=== PATIENT | female | born 1940 | race Caucasian/White ===

== ENCOUNTER 2023-10-04 16:54 | Inpatient (IN) | payer MEDICARE, OTHER ==
[~2023-10-04] VITALS: Ht 162.6 cm; Wt 58.2 kg
[~2023-10-04 16:54] MED LIST: DILT360C17; FLUO40CA; FURO40TA4; POTA-211; SIMV40TA18; WARF-112; WARF4TAB70
[2023-10-04 17:57] LABS: Basophils # (auto) 0 10 ^3/uL (0-0.2); Basophils % (auto) 0.1 % (0.0-2.0); Eosinophils # (auto) 0 10 ^3/uL (0-0.8); Hematocrit 33.4 % (36.0-46.0); Hemoglobin 10.6 g/dL (12.2-16.2); Lymphocytes # (auto) 0.8 10 ^3/uL (0.4-5.4); Mean Corpuscular Hemoglobin 27.5 pg (28.0-32.0); Mean Corpuscular Hgb Conc. 31.7 g/dL (32.0-36.0); Mean Corpuscular Volume 86.7 fL (80.0-100.0); Monocytes # (auto) 1.5 10 ^3/uL (0-1.3); Monocytes % (auto) 5.5 % (0.0-12.0); Neutrophils # (auto) 23.9 10 ^3/uL (1.6-8.6); Neutrophils % (auto) 91.4 % (37.0-80.0); Red Blood Cells 3.85 10^6/uL (4.0-5.20); Red Cell Distribution Width 18.8 % (11.8-14.3); White Blood Cell 26.2 10^3/uL (4.4-10.8)
[2023-10-04 18:01] VITALS: PULSE 98; RESP 26; O2SAT 96
[2023-10-04 18:09] LABS: Alanine Aminotransferase 11 U/L (7-40); Alkaline Phosphatase 122 U/L (46-116); Anion Gap 13 (5-15); Aspartate Aminotransferase 22 U/L (13-40); BUN/Creatinine Ratio 11.7 (10.0-20.0); Bilirubin, Total 0.3 mg/dL (0.2-1.0); Blood Urea Nitrogen 44 mg/dL (9-23); Calcium 8.8 mg/dL (8.5-10.1); Carbon Dioxide 24 mmol/L (20-30); Chloride 100 mmol/L (98-107); Glucose 138 mg/dL (74-106); Potassium 4.5 mmol/L (3.5-5.1); Sodium 137 mmol/L (136-145); Total Protein 7.5 g/dL (5.7-8.2)
[2023-10-04 18:18] LABS: Prothrombin Time 46.5 sec (9.3-11.8)
[2023-10-04 18:20] LABS: INR 4.94 (0.9-1.15)
[2023-10-04 18:20] LABS: Urine Bacteria None Seen /hpf (None Seen)
[2023-10-04 18:34] LABS: Lactic Acid w/Reflex 2.9 mmol/L (0.4-2.0)
[2023-10-04 18:37] LABS: Urine Blood 2+ /uL (Negative); Urine Clarity Ex.Turbid (Clear); Urine Color Light-Brown (Yellow); Urine Protein, UAD 2+ (Negative); Urine Specific Gravity 1.011 (1.001-1.035); Urine Urobilinogen Normal (Negative); Urine WBC 4919 /hpf (0 - 5); Urine WBC Clumps PRESENT /hpf (None Seen); Urine pH 6.5 (5.0-9.0)
[2023-10-04] MEDS: SODIUM CHLORIDE 0.9% 1,000 ML IV ONE (18:41)
[2023-10-04] MEDS: levoFLOXacin 750MG 150 ML IV ONE (18:41)
[2023-10-04 19:30] VITALS: PULSE 94; RESP 24; O2SAT 98
[2023-10-04] MEDS ORDERED: NITROGLYCERIN 0.4 MG SL TAB SL PRN (22:00)
[2023-10-04] MEDS ORDERED: MORPHINE SULFATE INJ 2 MG/ml SYRG IV PRN (22:00)
[2023-10-04] MEDS ORDERED: ONDANSETRON HCL 4 MG/2 ML VIAL IV PRN (22:00)
[2023-10-04] MEDS ORDERED: DOCUSATE SOD 100 MG CAP PO PRN (22:00)
[2023-10-04] MEDS ORDERED: GABA-339 PO (22:01)
[2023-10-04] MEDS ORDERED: ATOR40TA52 PO (22:01)
[2023-10-04] MEDS ORDERED: POTA-228 PO (22:01)
[2023-10-04] MEDS ORDERED: METF-370 PO (22:04)
[2023-10-04] MEDS ORDERED: WARF-113 PO (22:04)
[2023-10-04] MEDS ORDERED: DEXTROSE (50%) 50ML SYRG IV PRN (22:15)
[2023-10-04] MEDS: ACETAMINOPHEN 325 MG TAB PO PRN (22:24)
[2023-10-04] MEDS: SODIUM CHLORIDE 0.9% 1,800 ML IV ONE (23:00)
[2023-10-04] MEDS: ACETAMINOPHEN 650 MG RECT SUPP PR PRN (23:08)
[2023-10-04] MEDS: SODIUM CHLORIDE 0.9% 1,000 ML IV SCH (23:12)
[2023-10-05] VITALS (9 sets, daily range): BP systolic 119–145; BP diastolic 58–65; PULSE 99–120; RESP 17–20; TEMP 37.4; O2SAT 90–95
[2023-10-05 05:26] LABS: Basophils # (auto) 0 10 ^3/uL (0-0.2); Basophils % (auto) 0.2 % (0.0-2.0); Eosinophils # (auto) 0 10 ^3/uL (0-0.8); Hematocrit 30.3 % (36.0-46.0); Hemoglobin 9.4 g/dL (12.2-16.2); Lymphocytes # (auto) 0.7 10 ^3/uL (0.4-5.4); Lymphocytes % (auto) 3.8 % (10.0-50.0); Mean Corpuscular Hgb Conc. 31.1 g/dL (32.0-36.0); Mean Corpuscular Volume 86.7 fL (80.0-100.0); Monocytes # (auto) 1.1 10 ^3/uL (0-1.3); Monocytes % (auto) 5.9 % (0.0-12.0); Neutrophils % (auto) 90.1 % (37.0-80.0); Red Blood Cells 3.49 10^6/uL (4.0-5.20); Red Cell Distribution Width 18.9 % (11.8-14.3); White Blood Cell 18.9 10^3/uL (4.4-10.8)
[2023-10-05 05:44] LABS: Albumin 3.4 g/dL (3.2-4.8); Alkaline Phosphatase 101 U/L (46-116); Anion Gap 11 (5-15); Aspartate Aminotransferase 26 U/L (13-40); BUN/Creatinine Ratio 12.8 (10.0-20.0); Bilirubin, Total 0.2 mg/dL (0.2-1.0); Blood Urea Nitrogen 45 mg/dL (9-23); Carbon Dioxide 22 mmol/L (20-30); Chloride 106 mmol/L (98-107); Glucose 104 mg/dL (74-106); Potassium 4.3 mmol/L (3.5-5.1); Sodium 139 mmol/L (136-145); Total Protein 6.3 g/dL (5.7-8.2)
[2023-10-05 05:45] LABS: Alanine Aminotransferase 9 U/L (7-40)
[2023-10-05] MEDS: GABAPENTIN 300 MG CAP PO SCH (06:00)
[2023-10-05] MEDS: InsuLIN REG 1unit/0.01ml Soln (100units/ml) SC SCH ×2 (07:00→22:00)
[2023-10-05] MEDS: ACCU-CHEK COMFORT CURVE STRIP VI SCH (07:06)
[2023-10-05] MEDS: FUROSEMIDE 40 MG TAB PO SCH (07:22)
[2023-10-05] MEDS ORDERED: ALBUTEROL SULF 2.5 MG/0.5ML(0.5%) NEB SOLN NEB PRN (11:45)
[2023-10-05] MEDS: levoFLOXacin 250MG 50 ML IV SCH (17:50)
[2023-10-05] MEDS: FUROSEMIDE 40 MG/4 ML VIAL IV ONE (17:51)
[2023-10-05] MEDS ORDERED: PATIENTS OWN MEDICATION (Atorvastatin Calcium 1 TAB) PO SCH (22:00)
[2023-10-05] MEDS: ATORVASTATIN 20 MG TAB PO SCH (22:17)
[2023-10-06] VITALS (8 sets, daily range): BP systolic 102–140; BP diastolic 55–72; PULSE 98–126; RESP 15–20; TEMP 97.9–98.9; O2SAT 93–98
[2023-10-06] MEDS: FUROSEMIDE 40 MG/4 ML VIAL IV SCH (09:53)
[2023-10-06] MEDS ORDERED: levoFLOXacin 250MG 50 ML IV SCH (18:00)
[2023-10-07] VITALS (11 sets, daily range): BP systolic 115–164; BP diastolic 56–74; PULSE 100–124; RESP 16–18; TEMP 97.8–98.8; O2SAT 95–98
[2023-10-07] MEDS ORDERED: WARF-111 PO (11:52)
[2023-10-07] MEDS ORDERED: PANT1INJ3 PO (11:52)
[2023-10-07] MEDS ORDERED: DIGO0.12 PO (11:57)
[2023-10-07] MEDS ORDERED: GEMF-66 PO (11:57)
[2023-10-07] MEDS ORDERED: BUPR-346 PO (11:57)
[2023-10-07] MEDS ORDERED: POTA-36 PO (11:57)
[2023-10-07] MEDS ORDERED: VERA120T92 PO (11:57)
[2023-10-07] MEDS ORDERED: DIPH2.5T73 PO (11:57)
[2023-10-07 13:01] LABS: Basophils # (auto) 0 10 ^3/uL (0-0.2); Basophils % (auto) 0.1 % (0.0-2.0); Eosinophils # (auto) 0 10 ^3/uL (0-0.8); Eosinophils % (auto) 0.4 % (0.0-7.0); Hematocrit 35.6 % (36.0-46.0); Hemoglobin 11.1 g/dL (12.2-16.2); Lymphocytes # (auto) 0.8 10 ^3/uL (0.4-5.4); Lymphocytes % (auto) 7.2 % (10.0-50.0); Mean Corpuscular Hemoglobin 27.1 pg (28.0-32.0); Mean Corpuscular Hgb Conc. 31.1 g/dL (32.0-36.0); Monocytes # (auto) 0.9 10 ^3/uL (0-1.3); Neutrophils # (auto) 9.8 10 ^3/uL (1.6-8.6); Neutrophils % (auto) 84.3 % (37.0-80.0); Nucleated Red Blood Cells % 0.1 %; Red Blood Cells 4.09 10^6/uL (4.0-5.20); Red Cell Distribution Width 19.7 % (11.8-14.3); White Blood Cell 11.6 10^3/uL (4.4-10.8)
[2023-10-07 13:16] LABS: Chloride 104 mmol/L (98-107); Potassium 3.2 mmol/L (3.5-5.1); Sodium 142 mmol/L (136-145)
[2023-10-07 13:17] LABS: Anion Gap 9 (5-15); Calcium 8.9 mg/dL (8.5-10.1); Carbon Dioxide 29 mmol/L (20-30)
[2023-10-07 13:22] LABS: BUN/Creatinine Ratio 22.2 (10.0-20.0); Blood Urea Nitrogen 48 mg/dL (9-23); Glucose 117 mg/dL (74-106)
[2023-10-07] MEDS: GABAPENTIN 100 MG CAP PO SCH (14:02)
[2023-10-08] VITALS (8 sets, daily range): BP systolic 114–124; BP diastolic 45–66; PULSE 65–118; RESP 17–18; TEMP 97.1–98.3; O2SAT 94–100
[2023-10-08 05:38] LABS: INR 2.38 (0.9-1.15); Prothrombin Time 23.7 sec (9.3-11.8)
[2023-10-08] MEDS: HYDROcodone-ACET 5/325MG TAB PO PRN (12:20)
[2023-10-09 05:00] VITALS: BP 101/48; PULSE 83; RESP 20; TEMP 98.4; O2SAT 99
[2023-10-09 06:37] LABS: INR 2.46 (0.9-1.15); Prothrombin Time 24.4 sec (9.3-11.8)
[2023-10-09 08:00] VITALS: PULSE 87; PULSE 96; RESP 20
[2023-10-09 08:40] VITALS: BP 108/57; PULSE 87; RESP 20; TEMP 98.2; O2SAT 97
[2023-10-09 11:14] LABS: Basophils # (auto) 0 10 ^3/uL (0-0.2); Basophils % (auto) 0.3 % (0.0-2.0); Eosinophils # (auto) 0.2 10 ^3/uL (0-0.8); Eosinophils % (auto) 1.9 % (0.0-7.0); Hematocrit 33.9 % (36.0-46.0); Hemoglobin 10.6 g/dL (12.2-16.2); Lymphocytes # (auto) 1.5 10 ^3/uL (0.4-5.4); Lymphocytes % (auto) 13.5 % (10.0-50.0); Mean Corpuscular Hemoglobin 27.2 pg (28.0-32.0); Mean Corpuscular Hgb Conc. 31.4 g/dL (32.0-36.0); Mean Corpuscular Volume 86.7 fL (80.0-100.0); Monocytes # (auto) 1.2 10 ^3/uL (0-1.3); Monocytes % (auto) 10.7 % (0.0-12.0); Neutrophils % (auto) 73.6 % (37.0-80.0); Red Blood Cells 3.91 10^6/uL (4.0-5.20); Red Cell Distribution Width 18.9 % (11.8-14.3); White Blood Cell 10.9 10^3/uL (4.4-10.8)
[2023-10-09 11:20] LABS: Chloride 106 mmol/L (98-107); Potassium 3.4 mmol/L (3.5-5.1); Sodium 141 mmol/L (136-145)
[2023-10-09 11:21] LABS: Anion Gap 5 (5-15); Carbon Dioxide 30 mmol/L (20-30)
[2023-10-09 11:22] LABS: Calcium 8.8 mg/dL (8.5-10.1)
[2023-10-09 11:26] LABS: Glucose 106 mg/dL (74-106)
[2023-10-09 11:27] LABS: BUN/Creatinine Ratio 19.4 (10.0-20.0)
[2023-10-09 11:42] LABS: Blood Urea Nitrogen 33 mg/dL (9-23)
[2023-10-09 12:35] VITALS: BP 127/69; PULSE 96; RESP 22; TEMP 98.5; O2SAT 99
[2023-10-09] MEDS: WARFARIN SODIUM 2 MG TAB PO ONE (18:06)
[2023-10-09 20:00] VITALS: PULSE 103; PULSE 98; RESP 18; O2SAT 97
[2023-10-09 21:00] VITALS: BP 125/54; PULSE 98; RESP 18; TEMP 98.1; O2SAT 97
[2023-10-10 08:00] VITALS: PULSE 96; PULSE 99; RESP 20; O2SAT 96
[2023-10-10 08:09] LABS: INR 3.24 (0.9-1.15); Prothrombin Time 31.5 sec (9.3-11.8)
[2023-10-10 09:27] VITALS: BP 110/41; PULSE 102; RESP 16; TEMP 98.2; O2SAT 100
[2023-10-10] MEDS: POTASSIUM CHL 20 Meq TABLET PO ONE (12:34)
[2023-10-10] MEDS: levoFLOXacin 250MG 50 ML IV SCH (12:54)
[2023-10-10 13:00] VITALS: BP 127/68; PULSE 91; RESP 16; TEMP 97.6; O2SAT 98
[2023-10-10 17:23] VITALS: BP 109/63; PULSE 92; RESP 20; TEMP 98.6; O2SAT 98
[2023-10-10 20:00] VITALS: PULSE 97; RESP 19; O2SAT 97
[2023-10-10 21:00] VITALS: BP 125/62; PULSE 82; RESP 16; TEMP 98.7; O2SAT 98
[2023-10-10] MEDS ORDERED: MORPHINE SULFATE 4 MG/ML SYR/VIAL IV PRN (21:30)
[2023-10-11] VITALS (8 sets, daily range): BP systolic 107–144; BP diastolic 46–77; PULSE 69–140; RESP 14–22; TEMP 97.3–99.6; O2SAT 93–99
[2023-10-11 07:32] LABS: Prothrombin Time 42.5 sec (9.3-11.8)
[2023-10-11 07:41] LABS: INR 4.48 (0.9-1.15)
[2023-10-11] MEDS: POTASSIUM CHL 20 Meq TABLET PO SCH (09:44)
[2023-10-12] VITALS (7 sets, daily range): BP systolic 105–127; BP diastolic 55–77; PULSE 69–131; RESP 16–20; TEMP 97.7–98.9; O2SAT 94–100
[2023-10-12 06:55] LABS: INR 3.8 (0.9-1.15); Prothrombin Time 36.5 sec (9.3-11.8)
[2023-10-12] MEDS ORDERED: DEXTROSE (50%) 50ML SYRG IV PRN (11:15)
[2023-10-12] MEDS: ACCU-CHEK COMFORT CURVE STRIP VI SCH (11:49)
[2023-10-12] MEDS: InsuLIN REG 1unit/0.01ml Soln (100units/ml) SC SCH (11:49)
[2023-10-12] MEDS: diphenhdrAMINE HCL 50 MG/1 ML VL IV ONE (12:45)
[2023-10-13] VITALS (7 sets, daily range): BP systolic 115–128; BP diastolic 52–68; PULSE 92–131; RESP 14–20; TEMP 97.7–98.5; O2SAT 91–100
[2023-10-13 06:56] LABS: INR 3.25 (0.9-1.15); Partial Thromboplastin Time 44.4 SEC (24.5-34.5); Prothrombin Time 31.6 sec (9.3-11.8)
[2023-10-13 18:36] LABS: Magnesium 1.4 mg/dL (1.6-2.6)
[2023-10-13] MEDS: ATORVASTATIN 20 MG TAB PO SCH (21:57)
[2023-10-13] MEDS: METOPROLOL TARTRATE 25 MG TAB PO SCH (21:58)
[2023-10-14] VITALS (7 sets, daily range): BP systolic 107–143; BP diastolic 53–65; PULSE 66–110; RESP 18–22; TEMP 97.6–98.8; O2SAT 97–100
[2023-10-14 06:26] LABS: Anion Gap 6 (5-15); Carbon Dioxide 30 mmol/L (20-30); Chloride 106 mmol/L (98-107); Potassium 3.7 mmol/L (3.5-5.1); Sodium 142 mmol/L (136-145)
[2023-10-14 06:27] LABS: Calcium 9.2 mg/dL (8.7-10.4); INR 2.75 (0.9-1.15)
[2023-10-14 06:32] LABS: BUN/Creatinine Ratio 11.7 (10.0-20.0); Blood Urea Nitrogen 17 mg/dL (9-23); Glucose 107 mg/dL (74-106)
[2023-10-14 06:33] LABS: Magnesium 1.6 mg/dL (1.6-2.6)
[2023-10-14] MEDS: MAGNESIUM SULFATE 1GM/100ML 100 ML IV SCH (08:03)
[2023-10-14] MEDS: POTASSIUM EFFERVESENT TAB 25 MEQ PO SCH (09:32)
[2023-10-14] MEDS ORDERED: diphenhdrAMINE HCL 50 MG/1 ML VL IV PRN (13:45)
[2023-10-14] MEDS: WARFARIN SODIUM 2 MG TAB PO ONE (17:30)
[2023-10-15] VITALS (8 sets, daily range): BP systolic 97–108; BP diastolic 45–55; PULSE 71–103; RESP 16–19; TEMP 97.8–98.8; O2SAT 98–100
[2023-10-15] MEDS: ACETAMINOPHEN 325 MG TAB PO PRN (06:17)
[2023-10-15 06:25] LABS: INR 2.14 (0.9-1.15); Prothrombin Time 21.4 sec (9.3-11.8)
[2023-10-15 07:49] LABS: Chloride 105 mmol/L (98-107); Potassium 4.4 mmol/L (3.5-5.1); Sodium 139 mmol/L (136-145)
[2023-10-15 07:50] LABS: Anion Gap 8 (5-15); Calcium 8.5 mg/dL (8.5-10.1); Carbon Dioxide 26 mmol/L (20-30)
[2023-10-15 07:55] LABS: BUN/Creatinine Ratio 10.7 (10.0-20.0); Blood Urea Nitrogen 15 mg/dL (9-23); Glucose 124 mg/dL (74-106)
[2023-10-15 07:59] LABS: Basophils # (auto) 0.1 10 ^3/uL (0-0.2); Basophils % (auto) 0.5 % (0.0-2.0); Eosinophils # (auto) 0.5 10 ^3/uL (0-0.8); Eosinophils % (auto) 3.7 % (0.0-7.0); Hemoglobin 10.8 g/dL (12.2-16.2); Lymphocytes # (auto) 1.7 10 ^3/uL (0.4-5.4); Lymphocytes % (auto) 14.1 % (10.0-50.0); Mean Corpuscular Hemoglobin 27.4 pg (28.0-32.0); Mean Corpuscular Hgb Conc. 30.8 g/dL (32.0-36.0); Mean Corpuscular Volume 89.1 fL (80.0-100.0); Monocytes # (auto) 0.6 10 ^3/uL (0-1.3); Neutrophils # (auto) 9.4 10 ^3/uL (1.6-8.6); Neutrophils % (auto) 76.7 % (37.0-80.0); Red Blood Cells 3.93 10^6/uL (4.0-5.20); Red Cell Distribution Width 18.6 % (11.8-14.3); White Blood Cell 12.2 10^3/uL (4.4-10.8)
[2023-10-15] MEDS: WARFARIN SODIUM 1 MG TAB PO ONE (17:19)
[2023-10-16 01:12] VITALS: BP 98/35; PULSE 77; RESP 19; TEMP 98.9; O2SAT 97
[2023-10-16 06:35] LABS: INR 2.12 (0.9-1.15); Prothrombin Time 21.3 sec (9.3-11.8)
[2023-10-16 08:00] VITALS: PULSE 77
[2023-10-16 13:00] VITALS: BP 103/53; PULSE 69; RESP 18; TEMP 98.1; O2SAT 99
[2023-10-16 17:00] VITALS: BP 105/64; PULSE 118; RESP 18; TEMP 98; O2SAT 100
[2023-10-16] MEDS: WARFARIN SODIUM 1 MG TAB PO ONE (18:17)
[2023-10-16 20:00] VITALS: BP 103/55; PULSE 103; PULSE 112; RESP 19; O2SAT 98
[2023-10-17 01:00] VITALS: BP 106/54; PULSE 62; RESP 19; TEMP 98.1; O2SAT 93
[2023-10-17] MEDS: DIGOXIN (250MCG/ML) 2 ML AMPULE IV ONE (03:19)
[2023-10-17 07:08] LABS: Basophils # (auto) 0.1 10 ^3/uL (0-0.2); Basophils % (auto) 0.6 % (0.0-2.0); Eosinophils # (auto) 0.3 10 ^3/uL (0-0.8); Eosinophils % (auto) 3.3 % (0.0-7.0); Hematocrit 32.3 % (36.0-46.0); Hemoglobin 10.3 g/dL (12.2-16.2); Lymphocytes # (auto) 1.7 10 ^3/uL (0.4-5.4); Lymphocytes % (auto) 17.6 % (10.0-50.0); Mean Corpuscular Hemoglobin 28.1 pg (28.0-32.0); Mean Corpuscular Hgb Conc. 31.8 g/dL (32.0-36.0); Mean Corpuscular Volume 88.1 fL (80.0-100.0); Monocytes # (auto) 0.7 10 ^3/uL (0-1.3); Monocytes % (auto) 7.2 % (0.0-12.0); Neutrophils % (auto) 71.3 % (37.0-80.0); Nucleated Red Blood Cells % 0.1 %; Red Blood Cells 3.67 10^6/uL (4.0-5.20); Red Cell Distribution Width 18.4 % (11.8-14.3); White Blood Cell 9.8 10^3/uL (4.4-10.8)
[2023-10-17 07:18] LABS: INR 2.59 (0.9-1.15); Partial Thromboplastin Time 39.7 SEC (24.5-34.5); Prothrombin Time 25.6 sec (9.3-11.8)
[2023-10-17 08:00] VITALS: PULSE 107
[2023-10-17 09:00] VITALS: BP 113/59; PULSE 85; RESP 18; TEMP 98.4; O2SAT 93
[2023-10-17 12:26] VITALS: BP 111/57; PULSE 84; RESP 18; TEMP 98.6; O2SAT 98
[2023-10-17 17:00] VITALS: BP 92/61; PULSE 109; RESP 18; TEMP 99.2; O2SAT 96
[2023-10-17] MEDS: WARFARIN SODIUM 1 MG TAB PO ONE (18:12)
== END 2023-10-17 18:19 | disposition home or self-care (01) | DRG 871 ==
LOC: ER 16:54 → TELE 21:53 → TELE-CENTR 10-05 05:53
PROVIDERS: ADMIT Nurse Practitioner Family; ATTEND Internal Medicine
DX: A41.9 Sepsis, unspecified organism (principal); G93.41 Metabolic encephalopathy; N17.0 Acute kidney failure with tubular necrosis; N39.0 Urinary tract infection, site not specified; I48.19 Other persistent atrial fibrillation; D68.59 Other primary thrombophilia; R62.7 Adult failure to thrive; J44.9 Chronic obstructive pulmonary disease, unspecified; I10 Essential (primary) hypertension; E78.5 Hyperlipidemia, unspecified; B96.20 Unspecified Escherichia coli [E. coli] as the cause of diseases classified elsewhere; E11.9 Type 2 diabetes mellitus without complications; C43.9 Malignant melanoma of skin, unspecified; Z88.0 Allergy status to penicillin; Z86.73 Personal history of transient ischemic attack (TIA), and cerebral infarction without residual deficits; Z79.01 Long term (current) use of anticoagulants; Z79.4 Long term (current) use of insulin; Z80.49 Family history of malignant neoplasm of other genital organs; Z82.3 Family history of stroke; Z68.22 Body mass index [BMI] 22.0-22.9, adult
CPT/HCPCS: 36415; 71045; 80048; 80053; 80061; 81001; 82962; 83036; 83605; 83735; 83880; 84443; 84484; 85025; 85379; 85610; 85730; 87040; 87077; 87086; 87088; 87186; 92610; 93005; 93306; 97110; 97116; 97163; 97530; G0378; J1815; J1956